=== PATIENT | male | born 1950 | race Caucasian/White ===

== ENCOUNTER 2018-07-12 05:50 | Observation (INO) ==
[2018-07-12] MEDS ORDERED: Metoprolol Tartrate 25 MG Tablet PO ONE (06:51)
[2018-07-12] MEDS ORDERED: Chlorhexidine Gluconate 2% 1 Pack (2 Cloths) TOPICAL ONE (06:51)
[2018-07-12] MEDS ORDERED: Sodium Chlor 0.9% Inj 500 ML IV.SIG SCH (07:00)
[2018-07-12] MEDS ORDERED: Vancomycin Inj 1,000 MG in Sodium Chlor 0.9% Inj 250 ML IV.SIG ONE (07:00)
[2018-07-12] MEDS: Sod Chloride 0.9% Inj 1,000 ML IV.SIG SCH (07:30)
[2018-07-12] MEDS ORDERED: Propofol Inj 500 MG/50 ML Vial ONE (10:05)
[2018-07-12] MEDS ORDERED: Phenylephrine/NS 1000 MCG/10ML Syringe IV.PUSH ONE (10:39)
[2018-07-12] MEDS ORDERED: Lidocaine PF 1% Inj 5 ML Syringe OTHER ONE (10:39)
[2018-07-12] MEDS ORDERED: Succinylcholine Inj 100 MG/5 ML Syringe IV.PUSH ONE (10:39)
[2018-07-12] MEDS ORDERED: Normosol-R pH 7.4 Inj 1,000 ML IV.CONT ONE (10:39)
[2018-07-12] MEDS ORDERED: Gelatin Size 100 Topical Foam ONE (10:40)
[2018-07-12] MEDS ORDERED: Thrombin Topical Soln 5,000 UNIT Vial TOPICAL ONE (10:40)
[2018-07-12] MEDS ORDERED: Bupivacaine/Epinephrine 0.5% Inj 50 ML Vial ONE (10:40)
[2018-07-12] MEDS ORDERED: Ofloxacin 0.3% Opth Drops 5 ML Bottle ONE (13:03)
[2018-07-12] MEDS ORDERED: Morphine Inj 4 MG/ML Vial IV.PUSH PRN (13:05)
[2018-07-12] MEDS ORDERED: Bisacodyl 10 MG Supp RECTAL PRN (13:05)
[2018-07-12] MEDS ORDERED: Aluminum/Magnesium/Simethacone Susp 30 ML UDC PO PRN (13:05)
[2018-07-12] MEDS ORDERED: Acetaminophen 325 MG Tablet PO PRN (13:05)
[2018-07-12] MEDS ORDERED: Menthol 5.8 MG Lozenge BUCCAL PRN (13:05)
--- NOTE | 2018-07-12 13:15 | P.OP ---
- Preoperative Diagnosis (1) Stenosis of cervical spine with myelopathy (2) Herniated nucleus pulposus, C3-4 (3) Osteophyte of cervical spine (4) Dysphagia Date of procedure: 07/12/18 Procedure: Anterior cervical C3-4 microdiscectomy with interbody fusion; anterior C3-4 cervical plate placement; C3-4 interbody cage placement; resection of large anterior C4-5 vertebral body osteophytes compressing on the trachea/esophagus; microsurgical technique Anesthesia: IVETTE Surgeon: Richie Welch MD Branch General Manager: Heather Smith Estimated blood loss (mL): 30 Operation and Findings: Following administration of general endotracheal anesthesia with the neck maintained in neutral position in a [place] collar, the patient received a gram of vancomycin and Decadron 10 mg intravenously. Sequential compression devices were placed in supine position on a Sebastian table and all pressure points adequately padded. The head secured in a donut and anterior cervical region then shaved and prepped with Chloraprep and sterilely draped with Ioban along with the usual sterile draping. A transverse skin incision on the left side of the neck was then made after infiltrating the skin with 0.5% Marcaine with epinephrine solution extending down through the platysma. At the anterior border of the sternocleidomastoid further dissection was undertaken developing a plane between the carotid sheath laterally and the trachea esophagus medially. The prevertebral fascia was exposed and dissected out. The medial attachments of the longus colli muscles were detached and a self-retaining retractor used for exposure. The C3-4 disc space was localized with a marking the disc space and using lateral fluoroscopy. [place] distraction screws 14 mm length were placed one in the C3 and one in the C4 body interbody distraction and exposure. There was significant disc degeneration with disc height collapse noted at the C3-4 level and large anterior osteophytes noted at the C4- 5 level compressing on the overlying trachea/esophagus and the osteophytes were resected with a Leksell. The C3-4 annulus incised with a 15 blade and further dissection undertaken using microtechnique with microscope magnification. Diskectomy was undertaken with pituitaries and the endplates were also decorticated with curettes and drill bit. And more posteriorly there was disk osteophyte complex compressing the thecal sac along with a significant uncovertebral joint hypertrophy with foraminal stenosis which was decompressed along with removal of the posterior longitudinal ligaments at both levels. The foramen was decompressed bilaterally using a Kerrison's and palpation with a nerve hook, the exiting nerve roots were felt to be free. The area was then copiously irrigated. I then placed a Peek cage packed with local autograft bone at the C3-4 interspace under fluoroscopy guidance. [place] distraction pins were removed and the holes plugged with Gelfoam for hemostasis. In order to facilitate the fusion and provide stabilization, a Precision spine cervical plate was then placed with 14 mm variable angle screw in the C3 body and 14 mm fixed angle screw in the C4 body. The plate screw locking mechanism was then engaged. AP and lateral fluoroscopy confirmed good placement of the construct and the retractor was then removed. Muscular bleeding points were cauterized with bipolar cautery and Gelfoam was then also used for hemostasis which was removed. The platysma was then approximated using 3-0 Vicryl interrupted stitches and 3-0 Vicryl subcuticular stitch also placed in an interrupted fashion, and final skin closure was with Mastisol and Steri-Strips. Sterile dressing was then applied and the neck immobilized in a [place] collar. The patient was then extubated and taken to the recovery room. There are no intraoperative complications and all sponge and needle counts were correct at the end of procedure. Estimated blood loss was about 30 cc. The patient did undergo intraoperative neurologic monitoring which remained stable throughout the surgery.
[2018-07-12] MEDS ORDERED: fentaNYL Citrate Inj 100 MCG/2 ML Ampul ONE (13:27)
[2018-07-12] MEDS ORDERED: *Meperidine Inj 25 MG/ML Vial PERIprocedural Use ONLY ONE (13:46)
[2018-07-12] MEDS ORDERED: *morphine SULFATE 4 MG/ML PERIprocedure ONLY ONE (15:05)
--- NOTE | 2018-07-12 19:34 | XR ---
EXAM DATE: 07/12/2018 12:00 AM EDT AGE/SEX: 67 years / Male INDICATIONS: Fusion C3,C4 with screw and plate placement. CLINICAL DATA: This is the patient's initial encounter. Patient reports that signs and symptoms have been present for 1 day and indicates a pain score of Nonresponsive. MEDICAL/SURGICAL HISTORY: None. None. COMPARISON: No prior exams available for comparison. FINDINGS: 2 views from the OR have been submitted. There is an anterior cervical fusion plate at the C3-C4 leve l. There is a stabilization device at the C3-4 disc level. These appear well placed. There is an ET t ube and a tube in the esophagus in place. CONCLUSION: Good placement of surgical hardware at the C3-C4 level. Electronically signed by: Abhinav Campos MD 07/12/2018 7:33 PM EDT
[2018-07-12] MEDS ORDERED: COENZYME Q10 200 MG PO SCH (21:00)
[2018-07-12] MEDS ORDERED: Zolpidem Tartrate 5 MG Tablet PO PRN (21:00)
[2018-07-12] MEDS: Senna/Docusate Sodium 8.6/50 MG Tablet PO SCH (21:07)
[2018-07-12 21:33] VITALS: RESP 18
[2018-07-13] MEDS: Sod Chloride 0.9% Inj 1,000 ML IV.SIG SCH (07:30)
[2018-07-13] MEDS: Senna/Docusate Sodium 8.6/50 MG Tablet PO SCH (08:03)
--- NOTE | 2018-07-13 08:48 | P.PNNS ---
Subjective Interval history: Pt doing well. Denies much incisional pain. No radiculopathy or paresthesias in UEs. He tolerated breakfast well. Ambulating and voiding. Pt requests discharge home. Physical Exam Vital signs: Vital Signs 07/12/18 13:15 07/12/18 13:30 07/12/18 13:45 Temperature 97.4 F L Pulse Rate 73 64 61 Respiratory Rate 20 15 14 Blood Pressure 141/94 H 136/78 133/80 Pulse Oximetry 100 100 100 07/12/18 14:00 07/12/18 14:30 07/12/18 15:00 Temperature Pulse Rate 60 62 66 Respiratory Rate 13 14 15 Blood Pressure 127/89 140/81 129/69 Pulse Oximetry 100 100 100 07/12/18 15:30 07/12/18 15:45 07/12/18 16:10 Temperature 97.9 F 97.6 F Pulse Rate 66 64 67 Respiratory Rate 12 14 20 Blood Pressure 137/76 132/80 133/76 Pulse Oximetry 100 100 96 07/12/18 19:55 07/12/18 23:57 07/13/18 00:18 Temperature 97.8 F 98.2 F Pulse Rate 70 66 Respiratory Rate 18 18 18 Blood Pressure 130/69 115/60 Pulse Oximetry 96 95 07/13/18 04:26 Temperature 98.0 F Pulse Rate 67 Respiratory Rate 18 Blood Pressure 125/73 Pulse Oximetry 96 Intake & Output 07/12/18 07/13/18 07/13/18 18:59 06:59 18:59 Intake Total 2330 / 2330 1580 / 1580 100 / 100 Output Total 30 / 30 Balance 2300 / 2300 1580 / 1580 100 / 100 Weight 124 kg 124 kg Intake: IV 1100 / 1100 100 / 100 Ancef Inj 1,000 MG In NS Inj 100 / 100 100 / 100 100 ML @ 200 mls/hr IV.SIG Q8H [facility] Rx#:[id number] Oral 480 / 480 480 / 480 Anesthesia Amount 1850 / 1850 Output: Estimated Blood Loss 30 30 Other: # Voids 1 Date of Last Bowel Movement 07/11/18 07/11/18 # Bowel Movements 0 Weight On Admission 122 kg - Constitutional no acute distress, average body habitus, cooperative - Routine HEENT Exam Head: Present: normocephalic Eye: Present: PERRL. Absent: scleral injection ENT: Present: oropharynx clear - Routine Neck Exam Present: trachea midline - Routine Respiratory Exam Present: CTA bilaterally. Absent: respiratory distress, rhonchi, wheezes - Routine Cardiovascular Exam Present: RRR, S1, S2. Absent: murmur - Routine Abdominal Exam Present: soft, normoactive bowel sounds. Absent: distended, firm - Routine Skin Exam Absent: cyanosis, erythema Comments: Incision clean and dry without signs of infection or complication. New bandage applied. - Routine Neurological Exam Present: alert, moving all extremities, normal speech. Absent: sensory deficit , motor deficit, altered mental status - Routine Psychiatric Exam Present: normal affect, cooperative Assessment and Plan - Assessment (1) Stenosis of cervical spine with myelopathy Code(s): M47.12 - Other spondylosis with myelopathy, cervical region Status: Acute (2) Herniated nucleus pulposus, C3-4 Code(s): M50.21 - Other cervical disc displacement, high cervical region Status: Acute (3) Osteophyte of cervical spine Code(s): M25.78 - Osteophyte, vertebrae Status: Acute (4) Dysphagia Code(s): R13.10 - Dysphagia, unspecified Status: Acute - Plan 67 y/o M s/p C3/C4 ACF and C4/C5 vertebral body osteophyte resection. P: Discharge pt home Keep incision clean and dry Discussed restrictions Follow up in 6 weeks as instructed on preop instruction sheet.
[2018-07-13 09:58] VITALS: BP 125/71; PULSE 71; TEMP 98.5; O2SAT 93
== END 2018-07-13 10:18 | disposition home or self-care (01) ==
LOC: HSDC 05:50 → HSDI 05:50 → N06 15:59
PROVIDERS: ADMIT Neurological Surgery; ATTEND Neurological Surgery